=== PATIENT | male | born 1960 | race Caucasian/White ===

== ENCOUNTER → 2023-12-03 | Outpatient (CLI) | payer MEDICARE ==
--- NOTE | 2023-12-04 13:19 | US ---
EXAMINATION TYPE: US scrotum with doppler. TECHNIQUE: Grayscale and color Doppler Duplex imaging performed of the scrotum. DATE OF EXAM: 12/03/2023 COMPARISON: US 07/02/2023 CLINICAL INDICATION: Male, 63 years old with history of N43.3 HYDROCELE; Hydrocele recheck. Patient i s not having any pain. Enlarged scrotum*. EXAM MEASUREMENTS: TESTICLES: Right Testicle: 5.0 x 2.5 x 3.8 cm for a volume of 25 mL. Dilated tubular structures seen. A more focal complex cystic area in this region measuring 0.9 x 0.4 x 0.6 cm. More simple appearing previous ly measuring 3 mm. Left Testicle: 5.3 x 3.1 x 1.8 cm. For a volume of 16 mL. Remains heterogeneous in appearance and as ymmetrically smaller. Doppler performed to assess for testicular vascularity; good bilateral color flow and waveforms are s een. There is no evidence of testicular torsion. EPIDIDYMIS HEAD: Right Epididymis: Unable to visualize. Left Epididymis: Unable to visualize. Presence of hydroceles: *Large, complex area seen on the right: 15.6 x 10.9 x 9.9 cm. (Versus 15.1 x 14.4 x 10.0 cm, previously). *Complex area seen on the left: 9.2 x 4.2 x 3.9 cm. (Versus 6.5 x 4.8 x 2.4 cm, previously) Presence of varicoceles: Unable to visualize proper area to evaluate. IMPRESSION: 1. Ongoing large right hydrocele and moderate to large left hydrocele. These hydroceles are showing i ncreasing complexity with internal septations. Overall size on the right is similar. Slightly larger now on the left. 2. 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 This also appears to be slightly increa sing. Follow-up as clinically indicated. 3. Similar heterogeneous appearance to the smaller left testicle, probably chronic change. No Doppler evidence for testicular torsion.
== END | disposition home or self-care (01) ==
LOC: RADUSWWP 15:44
PROVIDERS: ATTEND Urology
DX: N43.3 Hydrocele, unspecified (principal)
CPT/HCPCS: 76870; 93975

== ENCOUNTER → 2023-12-07 | Outpatient (CLI) | payer MEDICARE | END | disposition home or self-care (01) | LOC: LABWHC1 11:11 | PROVIDERS: ATTEND Urology | DX: D29.20 Benign neoplasm of unspecified testis (principal) | CPT/HCPCS: 36415; 82105; 83615 ==

== ENCOUNTER → 2025-03-17 | Outpatient (CLI) | payer MEDICARE ==
[2025-03-18 01:56] LABS: Basophils # (A) 0.05 X 10*3/uL (0.00-0.10); Basophils % (A) 0.8 %; Eosinophils # (A) 0.06 X 10*3/uL (0.04-0.35); HCT 46.4 % (39.6-50.0); HGB 14.9 g/dL (13.0-17.0); Lymphocytes # (A) 2.03 X 10*3/uL (0.90-5.00); Lymphocytes % (A) 33.4 %; MCH 30.3 pg (27.0-32.0); MCHC 32.1 g/dL (32.0-37.0); MCV 94.3 FL (80.0-97.0); Mean Platelet Volume 10.4 FL (9.5-12.2); Monocytes # (A) 0.45 X 10*3/uL (0.20-1.00); Monocytes % (A) 7.4 %; NRBC Per 100 WBC 0 X 10*3/uL (0.00-0.01); Neutrophils # (A) 3.47 X 10*3/uL (1.80-7.70); Neutrophils % (A) 57.2 %; Platelet Count 166 X 10*3/uL (140-440); RBC 4.92 X 10*6/uL (4.40-5.60); RDW 14.7 % (11.5-14.5); WBC 6.07 X 10*3/uL (4.50-10.00)
[2025-03-18 02:49] LABS: BUN/Creat Ratio 20.08 Ratio (12.00-20.00); Blood Urea Nitrogen 24.1 mg/dL (9.0-27.0); Calcium 9.1 mg/dL (8.7-10.3); Carbon Dioxide 25.2 mmol/L (21.6-31.8); Chloride 107 mmol/L (96-109); Glucose 147 mg/dL (70-110); Potassium 4.6 mmol/L (3.5-5.5); Sodium 141 mmol/L (135-145)
== END | disposition home or self-care (01) ==
LOC: LABPAT 16:00
PROVIDERS: ATTEND Urology
DX: N43.3 Hydrocele, unspecified (principal)
CPT/HCPCS: 80048; 85025